=== PATIENT | male | born 2000 | race Caucasian/White ===

== ENCOUNTER 2019-06-06 12:08 | Emergency (ER) | payer OTHER ==
[~2019-06-06] VITALS: Ht 188 cm; Wt 79.4 kg
[2019-06-06 12:22] VITALS: BP 142/71
[2019-06-06] MEDS ORDERED: OXYMETAZOLINE HCL NASAL SPRAY 30 ML BOTTLE NS ONE ×2 (12:44→13:00)
== END 2019-06-06 14:42 | disposition home or self-care (01) ==
LOC: ER 12:13
DX: S02.2XXA Fracture of nasal bones, initial encounter for closed fracture (principal); S09.8XXA Other specified injuries of head, initial encounter; R04.0 Epistaxis; W50.0XXA Accidental hit or strike by another person, initial encounter; Y93.67 Activity, basketball; Y92.310 Basketball court as the place of occurrence of the external cause; Y99.8 Other external cause status
CPT/HCPCS: 70486-TC